=== PATIENT | female | born 1970 | race Two or more races ===

== ENCOUNTER 2019-09-01 20:35 | Emergency (ER) | payer SELFPAY ==
[~2019-09-01] VITALS: Ht 154.9 cm; Wt 70.4 kg
--- NOTE | 2019-09-01 20:54 | PHYS DOC ---
Adult General Chief Complaint Chief Complaint: COUGH HPI HPI 49-year-old female presents emergency department complaints of cough, chills, dizziness, blood-tinged sputum. 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 She states she she was progressively had increasing shortness of breath over the last couple of days. Nothing makes her symptoms worse, nothing makes her symptoms better. Given the blood-tinged sputum she was concerned. She is afebrile at this time. Review of Systems Review of Systems Constitutional: Chills HENT: Sore throat Respiratory: Cough, shortness of breath, hemoptysis Cardiovascular: No additional information not addressed in HPI [] GI: Denies abdominal pain, nausea, vomiting, bloody stools or diarrhea [] Musculoskeletal: Denies back pain or joint pain [] Integument: Denies rash or skin lesions [] Neurologic: Denies headache, focal weakness or sensory changes [] All other systems were reviewed and found to be within normal limits, except as documented in this note. Allergies Allergies Allergies Coded Allergies Type Severity Reaction Last Updated Verified No Known Drug Allergies 09/01/19 No Physical Exam Physical Exam Constitutional: Well developed, well nourished, no acute distress, non-toxic appearance. [] HENT: Normocephalic, atraumatic, bilateral external ears normal, oropharynx moist, no oral exudates, nose normal. [] Eyes: PERRLA, EOMI, conjunctiva normal, no discharge. [] Cardiovascular:Heart rate regular rhythm, no murmur [] Lungs & Thorax: Bilateral breath sounds clear to auscultation [] Abdomen: Bowel sounds normal, soft, no tenderness, no masses, no pulsatile masses. [] Skin: Warm, dry, no erythema, no rash. [] Back: No tenderness, no CVA tenderness. [] Extremities: No tenderness, no edema. [] Neurologic: Alert and oriented X 3, no focal deficits noted. [] Psychologic: Affect normal, judgement normal, mood normal. [] Current Patient Data Vital Signs Vital Signs Date Time Temp Pulse Resp B/P (MAP) Pulse Ox O2 Delivery O2 Flow Rate FiO2 09/01/19 20:52 98.5 95 16 162/104 (123) Room Air 98.5 Lab Values Laboratory Tests Test 3/21/20 21:00 09/01/19 21:15 White Blood Count 6.4 x10^3/uL (4.0-11.0) Red Blood Count 4.49 x10^6/uL (3.50-5.40) Hemoglobin 13.1 g/dL (12.0-15.5) Hematocrit 39.1 % (36.0-47.0) Mean Corpuscular Volume 87 fL (79-100) Mean Corpuscular Hemoglobin 29 pg (25-35) Mean Corpuscular Hemoglobin Concent 34 g/dL (31-37) Red Cell Distribution Width 13.6 % (11.5-14.5) Platelet Count 283 x10^3/uL (140-400) Neutrophils (%) (Auto) 65 % (31-73) Lymphocytes (%) (Auto) 26 % (24-48) Monocytes (%) (Auto) 7 % (0-9) Eosinophils (%) (Auto) 2 % (0-3) Basophils (%) (Auto) 1 % (0-3) Neutrophils # (Auto) 4.2 x10^3/uL (1.8-7.7) Lymphocytes # (Auto) 1.7 x10^3/uL (1.0-4.8) Monocytes # (Auto) 0.5 x10^3/uL (0.0-1.1) Eosinophils # (Auto) 0.1 x10^3/uL (0.0-0.7) Basophils # (Auto) 0.0 x10^3/uL (0.0-0.2) D-Dimer (Alma) 0.41 ug/mlFEU (0.00-0.50) Sodium Level 137 mmol/L (136-145) Potassium Level 3.2 mmol/L (3.5-5.1) L Chloride Level 97 mmol/L (98-107) L Carbon Dioxide Level 27 mmol/L (21-32) Anion Gap 13 (6-14) Blood Urea Nitrogen 9 mg/dL (7-20) Creatinine 0.8 mg/dL (0.6-1.0) Estimated GFR (Cockcroft-Gault) 75.9 BUN/Creatinine Ratio 11 (6-20) Glucose Level 111 mg/dL (70-99) H Calcium Level 8.6 mg/dL (8.5-10.1) Total Bilirubin 0.2 mg/dL (0.2-1.0) Aspartate Amino Transferase (AST) 20 U/L (15-37) Alanine Aminotransferase (ALT) 26 U/L (14-59) Alkaline Phosphatase 54 U/L (46-116) Total Protein 7.6 g/dL (6.4-8.2) Albumin 3.2 g/dL (3.4-5.0) L Albumin/Globulin Ratio 0.7 (1.0-1.7) L Urine Collection Type Unknown Urine Color Yellow Urine Clarity Clear Urine pH 6.5 (<5.0-8.0) Urine Specific Pandora 1.010 (1.000-1.030) Urine Protein Negative mg/dL (NEG-TRACE) Urine Glucose (UA) Negative mg/dL (NEG) Urine Ketones (Stick) Negative mg/dL (NEG) Urine Blood Negative (NEG) Urine Nitrite Negative (NEG) Urine Bilirubin Negative (NEG) Urine Urobilinogen Dipstick 0.2 mg/dL (0.2 mg/dL) Urine Leukocyte Esterase Trace (NEG) Urine RBC 0 /HPF (0-2) Urine WBC 1-4 /HPF (0-4) Urine Squamous Epithelial Cells Mod /LPF Urine Bacteria 0 /HPF (0-FEW) Urine Mucus Slight /LPF Influenza Type A Antigen Negative (NEGATIVE) Influenza Type B Antigen Negative (NEGATIVE) Laboratory Tests 09/01/19 21:00 Laboratory Tests 09/01/19 21:00 EKG EKG [] Radiology/Procedures Radiology/Procedures [facility] [address] [place] [address] IMAGING REPORT Signed PATIENT: NATHANIEL HILLMAN ACCOUNT: [id number] : 1970 LOCATION: ER AGE: 49 SEX: F EXAM STATUS: REG ER ORD. PHYSICIAN: AUGUSTINE CASTILLO MD REASON: cough/fever/hemoptysis PROCEDURE: CT CHEST WO CONTRAST ADDENDUM FOR INTERNAL CODING PURPOSES Critical result: Findings discussed with AUGUSTINE CASTILLO at 09/01/2019 9:48 PM. RESULT CODE: (C) Electronically signed by: Vanessa Cortez MD (09/01/2019 9:50 PM) [id number] DICTATED AND SIGNED BY: VANESSA CORTEZ MD DATE: 09/01/192149 CC: AUGUSTINE CASTILLO MD; NO PCP ~ Exam: CT of chest without contrast INDICATION: Cough, fever, hemoptysis TECHNIQUE: Sequential axial images through the chest obtained without IV contrast. Sagittal and coronal reformatted images were reconstructed from the axial data and reviewed. Comparisons: None FINDINGS: Visualized portions of the thyroid are unremarkable. No enlargement is not lymph nodes are identified. Heart size is normal. No pericardial effusion. Thoracic aorta has a normal course and caliber. Pulmonary artery is not enlarged. Airways are patent. There are scattered focal areas of groundglass opacity noted throughout the lungs bilaterally. No suspicious nodules. No pleural effusion or thickening. No suspicious osseous lesions or acute fractures. IMPRESSION: Patchy areas of groundglass opacity noted within the lungs bilaterally favored to be infectious in etiology. Correlate for atypical/viral etiologies. Exposure: One or more of the following in the visualized dose reduction techniques were utilized for this examination: 1. Automated exposure control 2. Adjustment of the MA and/or KV according to patient size 3. Use of iterative of reconstructive technique Electronically signed by: Vanessa Cortez MD (09/01/2019 9:41 PM) [id number] DICTATED and SIGNED BY: VANESSA CORTEZ MD DATE: 09/01/192140 [] Course & Med Decision Making Course & Med Decision Making Pertinent Labs and Imaging studies reviewed. (See chart for details) []49-year-old female presents emergency department complaints of cough, chills, dizziness, blood-tinged sputum. 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 She states she she was progressively had increasing shortness of breath over the last couple of days. Nothing makes her symptoms worse, nothing makes her symptoms better. Given the blood-tinged sputum she was concerned. She is afebrile at this time. Labs/Imaging reviewed CT with evidence of bilateral ground glass opacities concerning for viral pneumonia - ?COVID-[address] Rebolledo regarding patient - will plan dc home with quarantine instructions Discussed with [place] Dept of Health - no outpatient testing kits available Will refer patient to outpatient testing site [phone] if she chooses Discussed return precautions - tylenol as needed for fever Albuterol INH provided upon discharge Patient voices understanding of the quarantine Rosanne Disclaimer Rosanne Disclaimer This electronic medical record was generated, in whole or in part, using a voice recognition dictation system. Departure Departure Impression: Primary Impression: Pneumonia Additional Impression: Hemoptysis Disposition: 01 HOME, SELF-CARE Condition: STABLE Patient Instructions: Fever, Adult, Pneumonia, Adult, [id number] Additional Instructions: Coronavirus testing is not performed on most people with mild symptoms who are being discharged from the emergency department. If Coronavirus testing was performed the results will not be available for possibly up to 2-3 days. If your result is positive you will be contacted. Please follow the following precautions at home: 1) Stay home except to get medical care. 2) As advised by the CDC we recommend you stay in your home and minimize contact with other people. We do not want you to spread the infection. 3) Those who are older or have significant medical issues may have more severe symptoms from this infection. We recommend self-isolation,FOR AT LEAST 7 DAYS after your 1st day of symptoms. AFTER you feel better please wait AT LEAST ANOTHER WEEK before returning to regular activities and being around other people! 4) IF you become sicker and have difficulty breathing, chest pain, unable to eat/drink, severe vomiting, diarrhea, or weakness you may need to return to the Emergency Department. 5) You should restrict activities outside your home, except for getting medical care. DO NOT go to work, school, or public areas. Avoid using public transportation, ride sharing, or taxis. 6) Separate yourself from other people in your home. You should use a separate bathroom if possible. 7) Avoid sharing personal household items such as dishes, cups, eating utensils, towels, etc. 8) Clean all high touch surfaces every day (door knobs, counter tops, etc). Use a household cleaning spray or wipe per label instructions. 9) Clean your hands often. Wash your hands with soap and water for at least 20 seconds. 10) Cover your mouth and nose with a tissue when you cough or sneeze. 11) Throw used tissues in a trash can and immediately wash your hands. For additional resources please visit the CDC website or the [facility] ([phone]). Local testing via lab [facility] is provided will need to call to see Scripts Albuterol Sulfate (PROAIR HFA INHALER) 8.5 Gm Hfa.aer.ad 2 PUFF INH PRN Q6HRS PRN for SHORTNESS OF BREATH, #1 INHALER 0 Refills Prov: AUGUSTINE CASTILLO MD 09/01/19 Problem Qualifiers Primary Impression: Pneumonia Pneumonia type: due to unspecified organism Laterality: bilateral Lung location: lower lobe of lung Qualified Codes: J18.9 - Pneumonia, unspecified organism AUGUSTINE CASTILLO MD Sep 01, 2019 20:54
--- NOTE | 2019-09-01 21:10 | RAD ---
AP chest x-ray HISTORY: Cough. FINDINGS: Mild lobulation left lateral diaphragm. Heart size normal. Mediastinal silhouette is normal. No pneumothorax, pulmonary opacities or pleural effusions. Bones are unremarkable. IMPRESSION: No acute process. Electronically signed by: Samson Baer MD (09/01/2019 9:07 PM) [id number]
[2019-09-01 21:26] LABS: BASO % 1 % (0-3); EOS # 0.1 x10^3/uL (0.0-0.7); EOS % 2 % (0-3); HEMATOCRIT 39.1 % (36.0-47.0); HEMOGLOBIN 13.1 g/dL (12.0-15.5); LYMPH # 1.7 x10^3/uL (1.0-4.8); LYMPH % 26 % (24-48); MEAN CORPUSCULAR HEMOGLOBIN 29 pg (25-35); MEAN CORPUSCULAR HGB CONC 34 g/dL (31-37); MEAN CORPUSCULAR VOLUME 87 fL (79-100); MONO # 0.5 x10^3/uL (0.0-1.1); MONO % 7 % (0-9); NEUT # 4.2 x10^3/uL (1.8-7.7); NEUT % 65 % (31-73); PLATELET COUNT 283 x10^3/uL (140-400); RED BLOOD COUNT 4.49 x10^6/uL (3.50-5.40); RED CELL DISTRIBUTION WIDTH 13.6 % (11.5-14.5); WHITE BLOOD COUNT 6.4 x10^3/uL (4.0-11.0)
[2019-09-01 21:31] LABS: BILIRUBIN,URINE NEGATIVE (NEG); CLARITY,URINE CLEAR; COLOR,URINE YELLOW; NITRITE,URINE NEGATIVE (NEG); PH,URINE 6.5 (<5.0-8.0); PROTEIN,URINE NEGATIVE (NEG-TRACE); UROBILINOGEN,URINE 0.2 mg/dL (0.2 mg/dL)
[2019-09-01 21:34] LABS: CALCIUM 8.6 mg/dL (8.5-10.1); CREATININE 0.8 mg/dL (0.6-1.0); GFR 75.9; POTASSIUM 3.2 mmol/L (3.5-5.1)
[2019-09-01 21:37] LABS: BACTERIA,URINE 0 /HPF (0-FEW); RBC,URINE 0 /HPF (0-2); SQUAMOUS EPITHELIAL CELL,UR MOD /LPF
[2019-09-01 21:40] LABS: ALBUMIN 3.2 g/dL (3.4-5.0); ALBUMIN/GLOBULIN RATIO 0.7 (1.0-1.7); TOTAL BILIRUBIN 0.2 mg/dL (0.2-1.0); TOTAL PROTEIN 7.6 g/dL (6.4-8.2)
[2019-09-01 21:43] LABS: INFLUENZA A PATIENT NEGATIVE (NEGATIVE); INFLUENZA B PATIENT NEGATIVE (NEGATIVE)
--- NOTE | 2019-09-01 21:44 | RAD ---
Exam: CT of chest without contrast INDICATION: Cough, fever, hemoptysis TECHNIQUE: Sequential axial images through the chest obtained without IV contrast. Sagittal and coronal reformatted images were reconstructed from the axial data and reviewed. Comparisons: None FINDINGS: Visualized portions of the thyroid are unremarkable. No enlargement is not lymph nodes are identified. Heart size is normal. No pericardial effusion. Thoracic aorta has a normal course and caliber. Pulmonary artery is not enlarged. Airways are patent. There are scattered focal areas of groundglass opacity noted throughout the lungs bilaterally. No suspicious nodules. No pleural effusion or thickening. No suspicious osseous lesions or acute fractures. IMPRESSION: Patchy areas of groundglass opacity noted within the lungs bilaterally favored to be infectious in etiology. Correlate for atypical/viral etiologies. Exposure: One or more of the following in the visualized dose reduction techniques were utilized for this examination: 1. Automated exposure control 2. Adjustment of the MA and/or KV according to patient size 3. Use of iterative of reconstructive technique Electronically signed by: Vanessa Crow MD (09/01/2019 9:41 PM) [id number]
[2019-09-01 22:17] VITALS: BP 119/71
[2019-09-01] MEDS ORDERED: ALBU2.5V8 INH (22:33)
== END 2019-09-01 23:15 | disposition home or self-care (01) ==
LOC: ER 20:35
DX: J18.9 Pneumonia, unspecified organism (principal); R04.2 Hemoptysis; R42 Dizziness and giddiness
CPT/HCPCS: 36415; 71045; 71250; 80053; 81001; 85025; 85379; 87086; 87804; 99285